=== PATIENT | female | born 1995 | race American Indian/Alaskan Native ===

== ENCOUNTER 2018-02-28 13:26 | Emergency (ER) | payer MEDICAID ==
[2018-02-28 13:35] VITALS: BP 108/68
--- NOTE | 2018-02-28 16:01 | Emergency Department Report ---
Minor Respiratory - HPI Chief Complaint: Sore Throat Stated Complaint: SORE THROAT Time Seen by Provider: 02/28/18 15:46 Duration: 3 Days Pain Location: Throat Severity: moderate Minor Respiratory: Yes Rhinorrhea, Yes Sore Throat, Yes Able to Tolerate Fluids , Yes Cough, Yes Fever, No Ear Pain, No Sick Contacts, No Hemoptysis, No Chest Pain, No Shortness of Breath Other History: This is a 22 y.o. female that presents with a sore throat and cough for 3 days. Patient reports pain is worse with swallowing and intermittent. She is taking theraflu and nighttime cold and flu tablets with no improvement of symptoms. 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 Denies chest pain, SOB, nausea/vomiting, body aches, and abdominal pain. ED Review of Systems ROS: Stated complaint: SORE THROAT Other details as noted in HPI Constitutional: fever. denies: chills, malaise, weakness ENT: throat pain, congestion. denies: ear pain, dental pain, hearing loss, epistaxis Respiratory: cough. denies: orthopnea, shortness of breath, wheezing Cardiovascular: denies: chest pain, palpitations, edema, syncope Gastrointestinal: denies: abdominal pain, nausea, vomiting, diarrhea Neurological: headache. denies: weakness, numbness, paresthesias Psychiatric: denies: anxiety, depression ED Past Medical Hx - Past Medical History Hx Hypertension: No Hx Congestive Heart Failure: No Hx Diabetes: No Hx Deep Vein Thrombosis: No Hx Renal Disease: No Hx Sickle Cell Disease: No Hx Seizures: No Hx Asthma: No Hx COPD: No Hx HIV: No - Social History Smoking Status: Never Smoker Substance Use Type: None - Medications Home Medications: Home Medications Medication Instructions Recorded Confirmed Last Taken Type Hydrocortisone 1% [Hydrocortisone 1 applicatio TP TID #1 tube 12/19/14 Unknown Rx 1% CREAM] Sulfamethoxazole/Trimethoprim 1 each PO BID #6 tablet 12/19/14 Unknown Rx [Bactrim Ds] Nitrofurantoin [place]/M-Cryst 100 mg PO Q12HR #14 capsule 02/23/16 Unknown Rx [Macrobid CAP] Pnv,Calcium 72/Iron/Folic Acid 1 each PO QDAY #30 tablet 02/23/16 Unknown Rx [ Vitamin with Low Iron] metroNIDAZOLE [Metrogel 1%] 1 applicatio TP QHS #7 applicator 02/23/16 Unknown Rx Ibuprofen [Motrin 600 MG tab] 600 mg PO Q8H PRN #30 tablet 09/18/16 Unknown Rx Multivitamin with Iron 1 each PO DAILY #30 tablet 09/18/16 Unknown Rx [Multivitamins with Iron] Amoxicillin/Potassium Clav 1 each PO BID 5 Days #10 tablet 02/28/18 Unknown Rx [Augmentin 875-125 Tablet] Cetirizine HCl [Zyrtec] 10 mg PO DAILY #30 tablet 02/28/18 Unknown Rx Fluticasone [Flonase] 1 spray NS QDAY #1 bottle 02/28/18 Unknown Rx Minor Respiratory Exam - Exam General: Vital signs noted. No distress. Alert and acting appropriately. HEENT: Yes Pharyngeal Erythema, Yes Moist Mucous Membranes, Yes Rhinorrhea ( turbinates swollen and red, clear discharge), Yes Maxillary Tenderness, No Pharyngeal Exudates, No Conjuctival Injection, No Frontal Tenderness Ear: Neither TM Bulge, Neither TM Erythema, Neither EAC Pain, Neither EAC Discharge Neck: Yes Supple, No Adenopathy Lungs: Yes Good Air Exchange, Yes Cough, No Wheezes, No Ronchi, No Stridor, No Labored Respirations, No Retractions, No Use of Accessory Muscles, No Other Abnormal Lung Sounds Heart: Yes Regular, No Murmur Abdomen: Yes Normal Bowel Sounds, No Tenderness, No Peritoneal Signs Skin: No Rash, No Edema Neurologic: Alert and oriented, no deficits. Musculoskeletal: Unremarkable. ED Course Vital Signs 02/28/18 13:32 Temperature 99.7 F H Pulse Rate 107 H Respiratory 20 Rate Blood Pressure 108/68 O2 Sat by Pulse 98 Oximetry ED Medical Decision Making - Medical Decision Making This is a 22 y.o. female that presents with sore throat and cough for 3 days. Patient examined by me and stable. No distress noted. Physical findings susceptible of sinusitis. Take tylenol or ibuprofen for fever. Start zyrtec 10 mg po daily, flonase, augmentin 872/125 mg, 1 tab po bid. Discussed plan with patient and she agreed with plan to treat outpatient. Discharged home. Return to work tomorrow. Follow up with PCP in 48-72 hours. Critical care attestation.: If time is entered above; I have spent that time in minutes in the direct care of this critically ill patient, excluding procedure time. ED Disposition Clinical Impression: Sinusitis Qualifiers: Sinusitis location: maxillary Chronicity: acute Recurrence: non-recurrent Qualified Code(s): J01.00 - Acute maxillary sinusitis, unspecified Disposition: TO HOME OR SELFCARE Is pt being admited?: No Does the pt Need Aspirin: No Condition: Stable Instructions: Sinusitis (ED) Additional Instructions: Increase fluid intake and rest. Wash hands frequently. Take zyrtec daily as need for symptom relief. Symptoms should improve in the next 3-7 days. Use nasal saline spray to help control congestion and rinse nasal cavity, to improve breathing. F/U with Primary care provider in 24-72 hours. Return to ER if fever, SOB, or difficulty breathing after 48 hours of supportive care. Prescriptions: Amoxicillin/Potassium Clav [Augmentin 875-125 Tablet] 1 each PO BID 5 Days #10 tablet Cetirizine HCl [Zyrtec] 10 mg PO DAILY #30 tablet Fluticasone [Flonase] 1 spray NS QDAY #1 bottle Referrals[facility] [Outside] - 3-5 Days [facility] [Outside] - 3-5 Days [facility] [Outside] - 3-5 Days Time of Disposition: 16:06 Print Language: BELARUSIAN
== END 2018-02-28 16:20 | disposition home or self-care (01) ==
LOC: ED 13:26
DX: J01.00 Acute maxillary sinusitis, unspecified (principal)
CPT/HCPCS: 99282

== ENCOUNTER 2020-01-02 11:12 | Emergency (ER) | payer MEDICAID, OTHER ==
[2020-01-02 11:18] VITALS: BP 111/77
[2020-01-02 12:19] LABS: HCG Qualitative,Urine Negative (Negative)
[2020-01-02 12:33] LABS: Bilirubin,Urine NEG (Negative); Blood,Urine NEG (Negative); Color,Urine Yellow (Yellow); Mucus,Urine 3+ /HPF; Protein,Urine <15 mg/dL mg/dL (Negative); Urobilinogen,Urine < 2.0 mg/dL (<2.0)
[2020-01-02] MEDS ORDERED: ONDANSETRON 4 MG/2 ML INJ IV ONE (15:31)
[2020-01-02] MEDS ORDERED: MORPHINE 4 MG/1 ML INJ IV ONE (15:31)
[2020-01-02] MEDS ORDERED: SODIUM CHLORIDE 0.9% 1000 ML 1,000 ML IV ONE (15:31)
--- NOTE | 2020-01-02 15:42 | XRay Report ---
CHEST 2 VIEWS INDICATION / CLINICAL INFORMATION: cough. COMPARISON: None available. FINDINGS: SUPPORT DEVICES: None. HEART / MEDIASTINUM: No significant abnormality. LUNGS / PLEURA: No significant pulmonary or pleural abnormality. No pneumothorax. ADDITIONAL FINDINGS: No significant additional findings. IMPRESSION: 1. No acute findings. Signer Name: Jaimie Beverly MD Signed: 01/02/2020 3:37 PM Workstation Name: [id number]
[2020-01-02 15:54] LABS: Hematocrit 38.4 % (30.3-42.9); Hemoglobin 12.4 gm/dl (10.1-14.3); Mean Corpuscular HGB Conc 32 % (30-34); Mean Corpuscular Volume 86 fl (79-97); Platelet Count 236 K/mm3 (140-440); Red Blood Count 4.45 M/mm3 (3.65-5.03); Red Cell Distribution Width 13.6 % (13.2-15.2)
[2020-01-02] MEDS ORDERED: KETOROLAC 30 MG/1 ML INJ IV ONE (15:56)
[2020-01-02] MEDS ORDERED: KETOROLAC 30 MG/1 ML INJ ONE (15:57)
[2020-01-02 16:17] LABS: Alanine Aminotransferase 10 units/L (7-56); Albumin 4.4 g/dL (3.9-5); BUN/Creatinine Ratio 9; Blood Urea Nitrogen 6 mg/dL (7-17); Calcium 9.2 mg/dL (8.4-10.2); Hemolysis Index 9
[2020-01-02 16:44] LABS: Basophils % (Manual) 0 % (0.0-1.8); Eosinophils % (Manual) 0 % (0.0-4.3); Giant Platelets Few; Platelet Estimate Consistent w Auto; RBC Morphology Normal; Total Cells Counted 100
[2020-01-02] MEDS ORDERED: LIDOCAINE-MPF (1%) 10 MG/1 ML VIAL 5 ML INFILTRATI ONE (17:57)
[2020-01-02] MEDS ORDERED: AZITHROMYCIN 250 MG TAB PO ONE (17:57)
--- NOTE | 2020-01-02 18:12 | Emergency Department Report ---
ED Abdominal Pain HPI - General Chief Complaint: Upper Respiratory Infection Stated Complaint: COLD, VOMITTING Time Seen by Provider: 01/02/20 15:01 Source: patient Mode of arrival: Ambulatory Limitations: No Limitations - History of Present Illness Initial Comments: This is a 24-year-old female nontoxic, well nourished in appearance, no acute signs of distress presents to the ED with 3 different complaints: 1) c/o of nausea and vomiting and abdominal pain 1 day. Patient describes vomiting as food content and yellow gastric acid. Patient describes abdominal pain as cramping and aching with level of 8/10 diffuse. Patient denies any diarrhea or constipation. Patient denies any recent travels. 2) c/o of vaginal discharge. Patient denies any vaginal pain or swelling. Patient denies any vaginal ulcers or lesions. Patient stated she is concerned about STD. Patient denies any urinary symptoms. Patient denies any allergies or PMH. 3) c/o of productive cough, fever, chills, body aches, rhinorrhea, nasal congestion x5 days. Patient describes productive cough as yellow mucus production. Patient denies any sick contacts. Patient denies any recent travels, long car, recent hospital stays. Patient denies any calf pain or calf tenderness. Patient denies any chest pain, short of breath, pelvic pain, flank pain, vaginal bleeding, fever, chills, nausea, vomiting, hemoptysis, numbness, tingling, headache or stiff neck. Patient denies any allergies or significant past medical history. MD Complaint: abdominal pain -: days(s) Location: diffuse Radiation: none Severity: mild Severity scale (0 -10): 8 Quality: cramping, aching Consistency: constant Improves With: nothing Worsens With: nothing Associated Symptoms: nausea, vomiting. denies: diarrhea, fever, chills, constipation, dysuria, hematemesis, hematochezia, melena, hematuria, anorexia, syncope - Related Data Previous Rx's Medication Instructions Recorded Last Taken Type Hydrocortisone 1% [Hydrocortisone 1 applicatio TP TID #1 tube 12/19/14 Unknown Rx 1% CREAM] Sulfamethoxazole/Trimethoprim 1 each PO BID #6 tablet 12/19/14 Unknown Rx [Bactrim Ds] Nitrofurantoin [facility]/M-Cryst 100 mg PO Q12HR #14 capsule 02/23/16 Unknown Rx [Macrobid CAP] Pnv,Calcium 72/Iron/Folic Acid 1 each PO QDAY #30 tablet 02/23/16 Unknown Rx [ Vitamin with Low Iron] metroNIDAZOLE [Metrogel 1%] 1 applicatio TP QHS #7 applicator 02/23/16 Unknown Rx Ibuprofen [Motrin 600 MG tab] 600 mg PO Q8H PRN #30 tablet 09/18/16 Unknown Rx Multivitamin with Iron 1 each PO DAILY #30 tablet 09/18/16 Unknown Rx [Multivitamins with Iron] Amoxicillin/Potassium Clav 1 each PO BID 5 Days #10 tablet 02/28/18 Unknown Rx [Augmentin 875-125 Tablet] Cetirizine HCl [Zyrtec 10mg tab] 10 mg PO DAILY #30 tablet 02/28/18 Unknown Rx Fluticasone [Flonase] 1 spray NS QDAY #1 bottle 02/28/18 Unknown Rx Azithromycin [Zithromax Z-CHRISTOPHER] 250 mg PO DAILY #6 tablet 01/02/20 Unknown Rx Ondansetron [Zofran Odt] 4 mg PO Q8HR PRN #20 tab.rapdis 01/02/20 Unknown Rx metroNIDAZOLE [Flagyl] 500 mg PO Q12HR #14 tab 01/02/20 Unknown Rx Allergies Allergy/AdvReac Type Severity Reaction Status Date / Time No Known Allergies Allergy Verified 02/14/16 22:56 ED Review of Systems ROS: Stated complaint: COLD, VOMITTING Other details as noted in HPI Constitutional: denies: chills, fever Eyes: denies: eye pain, eye discharge, vision change ENT: congestion. denies: ear pain, throat pain Respiratory: cough. denies: shortness of breath, wheezing Cardiovascular: denies: chest pain, palpitations Endocrine: no symptoms reported Gastrointestinal: abdominal pain, nausea, vomiting. denies: diarrhea Genitourinary: discharge. denies: urgency, dysuria, frequency, hematuria, abnormal menses, dyspareunia Musculoskeletal: denies: back pain, joint swelling, arthralgia Skin: denies: rash, lesions Neurological: denies: headache, weakness, paresthesias Psychiatric: denies: anxiety, depression Hematological/Lymphatic: denies: easy bleeding, easy bruising ED Past Medical Hx - Past Medical History Previous Medical History?: Yes Hx Hypertension: No Hx Congestive Heart Failure: No Hx Diabetes: No Hx Deep Vein Thrombosis: No Hx Renal Disease: No Hx Sickle Cell Disease: No Hx Seizures: No Hx Asthma: No Hx COPD: No Hx HIV: No Additional medical history: Vaginal [id number] - Surgical History Past Surgical History?: No - Social History Smoking Status: Never Smoker Substance Use Type: Non Opiate Pain - Medications Home Medications: Home Medications Medication Instructions Recorded Confirmed Last Taken Type Hydrocortisone 1% [Hydrocortisone 1 applicatio TP TID #1 tube 12/19/14 Unknown Rx 1% CREAM] Sulfamethoxazole/Trimethoprim 1 each PO BID #6 tablet 12/19/14 Unknown Rx [Bactrim Ds] Nitrofurantoin [facility]/M-Cryst 100 mg PO Q12HR #14 capsule 02/23/16 Unknown Rx [Macrobid CAP] Pnv,Calcium 72/Iron/Folic Acid 1 each PO QDAY #30 tablet 02/23/16 Unknown Rx [ Vitamin with Low Iron] metroNIDAZOLE [Metrogel 1%] 1 applicatio TP QHS #7 applicator 02/23/16 Unknown Rx Ibuprofen [Motrin 600 MG tab] 600 mg PO Q8H PRN #30 tablet 09/18/16 Unknown Rx Multivitamin with Iron 1 each PO DAILY #30 tablet 09/18/16 Unknown Rx [Multivitamins with Iron] Amoxicillin/Potassium Clav 1 each PO BID 5 Days #10 tablet 02/28/18 Unknown Rx [Augmentin 875-125 Tablet] Cetirizine HCl [Zyrtec 10mg tab] 10 mg PO DAILY #30 tablet 02/28/18 Unknown Rx Fluticasone [Flonase] 1 spray NS QDAY #1 bottle 02/28/18 Unknown Rx Azithromycin [Zithromax Z-CHRISTOPHER] 250 mg PO DAILY #6 tablet 01/02/20 Unknown Rx Ondansetron [Zofran Odt] 4 mg PO Q8HR PRN #20 tab.rapdis 01/02/20 Unknown Rx metroNIDAZOLE [Flagyl] 500 mg PO Q12HR #14 tab 01/02/20 Unknown Rx ED Physical Exam - General Limitations: No Limitations General appearance: alert, in no apparent distress - Head Head exam: Present: atraumatic, normocephalic - Eye Eye exam: Present: normal appearance - Neck Neck exam: Present: normal inspection, full ROM. Absent: tenderness, meningismus, lymphadenopathy - Respiratory Respiratory exam: Present: normal lung sounds bilaterally. Absent: respiratory distress, wheezes, rales, rhonchi, stridor, chest wall tenderness, accessory muscle use, decreased breath sounds, prolonged expiratory - Cardiovascular Cardiovascular Exam: Present: regular rate, normal rhythm, normal heart sounds. Absent: bradycardia, tachycardia, irregular rhythm, systolic murmur, diastolic murmur, rubs, gallop - GI/Abdominal GI/Abdominal exam: Present: soft, tenderness (Diffuse), normal bowel sounds. 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 Absent: cervical motion tendernes, adnexal tenderness, adnexal mass, uterine enlargement, uterine tenderness - Extremities Exam Extremities exam: Present: normal inspection, full ROM, normal capillary refill. Absent: tenderness - Back Exam Back exam: Present: normal inspection, full ROM. Absent: tenderness, CVA tenderness (R), CVA tenderness (L), muscle spasm, paraspinal tenderness, vertebral tenderness, rash noted - Neurological Exam Neurological exam: Present: alert, oriented X3, normal gait - Psychiatric Psychiatric exam: Present: normal affect, normal mood - Skin Skin exam: Present: warm, dry, intact, normal color. Absent: rash ED Course Vital Signs 01/02/20 01/02/20 01/02/20 11:14 16:00 16:16 Temperature 98.6 F Pulse Rate 97 H Respiratory 18 18 18 Rate Blood Pressure 111/77 O2 Sat by Pulse 97 Oximetry - Reevaluation(s) Reevaluation #1: 01/02/20 18:18 Patient is speaking in full sentences with no signs of distress noted. ED Medical Decision Making - Lab Data Result diagrams: 01/02/20 15:31 01/02/20 15:31 - Medical Decision Making This is a 24-year-old female that presents with bronchitis, possible sTD, BV, abdominal pain and n/v. Patient is stable and was examined by me. Chest x-ray and CT of abdominal has been obtained and dictated by radiologist with normal exam. Patient is notified of results with no questions noted. Negative signs of symptoms of appendicitis. Labs obtained. UA obtained. Patient received medical treatment in the ED which patient stated symptoms has resovled and subsided. Was instructed note to operate any machinery due to possible drowsiness and stated someone will drive the patient home. A by mouth challenge has been obtained and patient tolerated well with no nausea vomiting. Patient received Rocephin and azithromycin in the ER. Patient was instructed to return in 3 to 5 days for gonorrhea and Chlamydia results. Due to patient having symptoms of upper respiratory infection and worsening I will treat patient empirically with zpak. Patient was instructed to increase hydration, rest and take Motrin for fever episodes. Vitals stable. Patient is nonfebrile and normal heart rate. Patient was instructed Follow-up with a primary care doctor in 3-5 days or if symptoms worsen and continue return to emergency room as soon as possible. At time time of discharge, the patient does not seem toxic or ill in appearance. No acute signs of distress noted. Patient agrees to discharge treatment plan of care. No further questions noted by the patient. Critical care attestation.: If time is entered above; I have spent that time in minutes in the direct care of this critically ill patient, excluding procedure time. ED Disposition Clinical Impression: Possible exposure to STD, Bronchitis, Bacterial vaginosis Abdominal pain Qualifiers: Abdominal location: generalized Qualified Code(s): R10.84 - Generalized abdominal pain Nausea & vomiting Qualifiers: Vomiting type: unspecified Vomiting Intractability: non-intractable Qualified Code(s): R11.2 - Nausea with vomiting, unspecified Disposition: DC-01 TO HOME OR SELFCARE Is pt being admited?: No Does the pt Need Aspirin: No Condition: Stable Instructions: Bacterial Vaginosis (ED), Acute Bronchitis (ED) Additional Instructions: Follow-up with a primary care doctor in 3-5 days or if symptoms worsen and continue return to emergency room as soon as possible. Return in 3-5 days for gonorrhea chlamydia results. Do not consume any alcohol while taking antibiotics. Prescriptions: metroNIDAZOLE [Flagyl] 500 mg PO Q12HR #14 tab Azithromycin [Zithromax Z-CHRISTOPHER] 250 mg PO DAILY #6 tablet Ondansetron [Zofran Odt] 4 mg PO Q8HR PRN #20 tab.rapdis PRN Reason: Nausea Referrals: PRIMARY CARE, [Primary Care Provider] - 3-5 Days DUONG HOLLEY MD [Staff Physician] - 3-5 Days [facility] [Outside] - 3-5 Days Forms: Work/School Release Form(ED)
--- NOTE | 2020-01-02 18:14 | Cat Scan Report ---
CT ABDOMEN AND PELVIS WITH CONTRAST INDICATION / CLINICAL INFORMATION: n/v abd pain. Left-sided abdominal pain for 3 days TECHNIQUE: Axial CT images were obtained through the abdomen and pelvis after 100 mL Omnipaque [address] scans at this location are performed using CT dose reduction for ALARA by means of automated exposure control. COMPARISON: None available. FINDINGS: LOWER CHEST: No significant abnormality. LIVER: No significant abnormality. GALLBLADDER: No significant abnormality. BILE DUCTS: No significant abnormality. PANCREAS: No significant abnormality. SPLEEN: No significant abnormality. ADRENALS: No significant abnormality. RIGHT KIDNEY and URETER: No significant abnormality. LEFT KIDNEY and URETER: No significant abnormality. STOMACH and SMALL BOWEL: Moderate amount of food material in the stomach. COLON: No significant abnormality. APPENDIX: No significant abnormality. PERITONEUM: Trace free fluid in the pelvis may be physiologic in this young female patient. No free a ir. No fluid collection. LYMPH NODES: No significant adenopathy. AORTA and ARTERIES: No significant abnormality. IVC and VEINS: No significant abnormality. URINARY BLADDER: No significant abnormality. REPRODUCTIVE ORGANS: Small bilateral ovarian follicles. ADDITIONAL FINDINGS: None. SKELETAL SYSTEM: No significant abnormality. IMPRESSION: 1. No inflammatory process or bowel obstruction. 2. Trace free fluid in the pelvis which may be physiologic in this young female patient. Signer Name: Jaimie Beverly MD Signed: 01/02/2020 6:09 PM Workstation Name: [id number]
== END 2020-01-02 18:32 | disposition home or self-care (01) ==
LOC: ED 11:12
DX: N76.0 Acute vaginitis (principal); R11.2 Nausea with vomiting, unspecified; R10.9 Unspecified abdominal pain; J40 Bronchitis, not specified as acute or chronic; Z79.899 Other long term (current) drug therapy; Z20.2 Contact with and (suspected) exposure to infections with a predominantly sexual mode of transmission
CPT/HCPCS: 36415; 71046; 74177; 80053; 81001; 81025; 83690; 85007; 85025; 87210; 87591; 96361; 96372; 96374; 96375; 99285; J0696; J1885; J2270; J2405; J7030; Q9967

== ENCOUNTER 2021-02-22 22:17 | Emergency (ER) | payer MEDICAID ==
[2021-02-22 23:17] VITALS: BP 115/64
[2021-02-22 23:49] LABS: Basophils % (Auto) 0.2 % (0.0-1.8); Eosinophils % (Auto) 0.4 % (0.0-4.3); Hematocrit 39.9 % (30.3-42.9); Hemoglobin 13.4 gm/dl (10.1-14.3); Lymphocytes # (Auto) 0.9 K/mm3 (1.2-5.4); Lymphocytes % (Auto) 15.1 % (13.4-35.0); Mean Corpuscular HGB Conc 34 % (30-34); Mean Corpuscular Volume 88 fl (79-97); Monocytes # (Auto) 0.5 K/mm3 (0.0-0.8); Monocytes % (Auto) 7.4 % (0.0-7.3); Platelet Count 287 K/mm3 (140-440); Red Blood Count 4.55 M/mm3 (3.65-5.03); Red Cell Distribution Width 13.3 % (13.2-15.2)
[2021-02-23] LABS: Alanine Aminotransferase 18 units/L (7-56); Albumin 4.7 g/dL (3.9-5); Blood Urea Nitrogen 7 mg/dL (7-17); Calcium 9.4 mg/dL (8.4-10.2); Hemolysis Index 7
[2021-02-23 00:04] LABS: BUN/Creatinine Ratio 10
[2021-02-23 00:12] LABS: Bilirubin,Urine NEG (Negative); Blood,Urine NEG (Negative); Color,Urine Amber (Yellow); Mucus,Urine 1+ /HPF
--- NOTE | 2021-02-23 01:43 | Emergency Department Report ---
ED General Adult HPI - General Chief complaint: Abdominal Pain Stated complaint: SHARP PAIN RT SIDE/BACK/EMESIS/DIARRHEA Time Seen by Provider: 02/23/21 01:41 Source: patient Mode of arrival: Ambulatory Limitations: No Limitations - History of Present Illness Initial comments: Patient is a 25-year-old -[place] female who presents for generalized abdominal pain with nausea vomiting diarrhea x3 days. Pain initially described as 7/10 now reduced to 3/10. Pain is exacerbated by voiding. Pain is relieved by nothing tried. Patient denies vaginal discharge or bleeding. Last menstrual cycle 2 weeks ago. Patient is tolerating p.o. intake at this time. Severity scale (0 -10): 7 - Related Data Previous Rx's Medication Instructions Recorded Last Taken Type Hydrocortisone 1% [Hydrocortisone 1 applicatio TP TID #1 tube 12/19/14 Unknown Rx 1% CREAM] Sulfamethoxazole/Trimethoprim 1 each PO BID #6 tablet 12/19/14 Unknown Rx [Bactrim Ds] Nitrofurantoin [place]/M-Cryst 100 mg PO Q12HR #14 capsule 02/23/16 Unknown Rx [Macrobid CAP] Pnv,Calcium 72/Iron/Folic Acid 1 each PO QDAY #30 tablet 02/23/16 Unknown Rx [ Vitamin with Low Iron] metroNIDAZOLE [Metrogel 1%] 1 applicatio TP QHS #7 applicator 02/23/16 Unknown Rx Ibuprofen [Motrin 600 MG tab] 600 mg PO Q8H PRN #30 tablet 09/18/16 Unknown Rx Multivitamin with Iron 1 each PO DAILY #30 tablet 09/18/16 Unknown Rx [Multivitamins with Iron] Amoxicillin/Potassium Clav 1 each PO BID 5 Days #10 tablet 02/28/18 Unknown Rx [Augmentin 875-125 Tablet] Cetirizine HCl [Zyrtec 10mg tab] 10 mg PO DAILY #30 tablet 02/28/18 Unknown Rx Fluticasone [Flonase] 1 spray NS QDAY #1 bottle 02/28/18 Unknown Rx Azithromycin [Zithromax Z-CHRISTOPHER] 250 mg PO DAILY #6 tablet 01/02/20 Unknown Rx Ondansetron [Zofran Odt] 4 mg PO Q8HR PRN #20 tab.rapdis 01/02/20 Unknown Rx metroNIDAZOLE [Flagyl] 500 mg PO Q12HR #14 tab 01/02/20 Unknown Rx cephALEXin [Keflex] 500 mg PO BID 7 Days #14 cap 02/23/21 Unknown Rx Allergies Allergy/AdvReac Type Severity Reaction Status Date / Time No Known Allergies Allergy Verified 02/14/16 22:56 ED Review of Systems ROS: Stated complaint: SHARP PAIN RT SIDE/BACK/EMESIS/DIARRHEA Other details as noted in HPI Constitutional: denies: chills, fever Eyes: denies: eye pain, eye discharge, vision change ENT: denies: ear pain, throat pain Respiratory: no symptoms reported Cardiovascular: denies: chest pain, palpitations Endocrine: no symptoms reported Gastrointestinal: abdominal pain, nausea, vomiting Genitourinary: urgency, dysuria, frequency. denies: hematuria (Ochoa e xamination), discharge Musculoskeletal: back pain (right flank). denies: joint swelling, arthralgia Skin: denies: rash, lesions Neurological: denies: headache, weakness, paresthesias Psychiatric: denies: anxiety, depression Hematological/Lymphatic: denies: easy bleeding, easy bruising ED Past Medical Hx - Past Medical History Previous Medical History?: No Hx Hypertension: No Hx Congestive Heart Failure: No Hx Diabetes: No Hx Deep Vein Thrombosis: No Hx Renal Disease: No Hx Sickle Cell Disease: No Hx Seizures: No Hx Asthma: No Hx COPD: No Hx HIV: No Additional medical history: Vaginal [id number] - Surgical History Past Surgical History?: No - Social History Smoking Status: Never Smoker Substance Use Type: Non Opiate Pain - Medications Home Medications: Home Medications Medication Instructions Recorded Confirmed Last Taken Type Hydrocortisone 1% [Hydrocortisone 1 applicatio TP TID #1 tube 12/19/14 Unknown Rx 1% CREAM] Sulfamethoxazole/Trimethoprim 1 each PO BID #6 tablet 12/19/14 Unknown Rx [Bactrim Ds] Nitrofurantoin [place]/M-Cryst 100 mg PO Q12HR #14 capsule 02/23/16 Unknown Rx [Macrobid CAP] Pnv,Calcium 72/Iron/Folic Acid 1 each PO QDAY #30 tablet 02/23/16 Unknown Rx [ Vitamin with Low Iron] metroNIDAZOLE [Metrogel 1%] 1 applicatio TP QHS #7 applicator 02/23/16 Unknown Rx Ibuprofen [Motrin 600 MG tab] 600 mg PO Q8H PRN #30 tablet 09/18/16 Unknown Rx Multivitamin with Iron 1 each PO DAILY #30 tablet 09/18/16 Unknown Rx [Multivitamins with Iron] Amoxicillin/Potassium Clav 1 each PO BID 5 Days #10 tablet 02/28/18 Unknown Rx [Augmentin 875-125 Tablet] Cetirizine HCl [Zyrtec 10mg tab] 10 mg PO DAILY #30 tablet 02/28/18 Unknown Rx Fluticasone [Flonase] 1 spray NS QDAY #1 bottle 02/28/18 Unknown Rx Azithromycin [Zithromax Z-CHRISTOPHER] 250 mg PO DAILY #6 tablet 01/02/20 Unknown Rx Ondansetron [Zofran Odt] 4 mg PO Q8HR PRN #20 tab.rapdis 01/02/20 Unknown Rx metroNIDAZOLE [Flagyl] 500 mg PO Q12HR #14 tab 01/02/20 Unknown Rx cephALEXin [Keflex] 500 mg PO BID 7 Days #14 cap 02/23/21 Unknown Rx ED Physical Exam - General Limitations: No Limitations General appearance: alert, in no apparent distress - Head Head exam: Present: atraumatic, normocephalic - Eye Eye exam: Present: normal appearance, PERRL, EOMI Pupils: Present: normal accommodation - ENT ENT exam: Present: normal exam, mucous membranes moist, TM's normal bilaterally, normal external ear exam - Expanded ENT Exam Expanded Ear exam: Present: normal external inspection - Neck Neck exam: Present: normal inspection, full ROM. Absent: tenderness, lymphadenopathy - Respiratory Respiratory exam: Present: normal lung sounds bilaterally. Absent: respiratory distress, wheezes, stridor, chest wall tenderness - Cardiovascular Cardiovascular Exam: Present: regular rate, normal heart sounds. Absent: normal rhythm - GI/Abdominal GI/Abdominal exam: Present: soft, normal bowel sounds. Absent: distended, tenderness, bruit, hernia - Rectal Rectal exam: Present: deferred - External exam: Present: normal external exam - Extremities Exam Extremities exam: Present: normal inspection - Back Exam Back exam: Present: normal inspection. Absent: full ROM, tenderness, CVA tenderness (R) - Neurological Exam Neurological exam: Present: alert, oriented X3, CN II-XII intact, normal gait - Psychiatric Psychiatric exam: Present: normal affect, normal mood - Skin Skin exam: Present: warm, dry, intact ED Course Vital Signs 02/22/21 23:16 Temperature 99.6 F Pulse Rate 101 H Respiratory 16 Rate Blood Pressure 115/64 O2 Sat by Pulse 96 Oximetry ED Medical Decision Making - Lab Data Result diagrams: 02/22/21 23:22 02/22/21 23:22 Critical care attestation.: If time is entered above; I have spent that time in minutes in the direct care of this critically ill patient, excluding procedure time. ED Disposition Clinical Impression: Pain, dental Disposition: DC-01 TO HOME OR SELFCARE Is pt being admited?: No Does the pt Need Aspirin: No Condition: Stable Instructions: Abdominal Pain (ED) Prescriptions: cephALEXin [Keflex] 500 mg PO BID 7 Days #14 cap Referrals: DUONG HOLLEY MD [Staff Physician] - 3-5 Days Forms: Work/School Release Form(ED) Time of Disposition: 03:00
[2021-02-23] MEDS ORDERED: cephALEXin 500 MG CAP PO ONE (01:45)
[2021-02-23] MEDS ORDERED: ONDANSETRON 4 MG ODT TAB PO ONE (01:45)
== END 2021-02-23 03:15 | disposition home or self-care (01) ==
LOC: ED 22:17
DX: K08.89 Other specified disorders of teeth and supporting structures (principal); R10.84 Generalized abdominal pain; R11.2 Nausea with vomiting, unspecified; R19.7 Diarrhea, unspecified; Z79.1 Long term (current) use of non-steroidal anti-inflammatories (NSAID); Z79.2 Long term (current) use of antibiotics; Z79.899 Other long term (current) drug therapy
CPT/HCPCS: 36415; 80053; 81001; 85025; Q0162